=== PATIENT | female | born 1995 | race Caucasian/White ===

== ENCOUNTER 2023-06-28 15:43 | Emergency (ER) | payer MEDICAID ==
[~2023-06-28] VITALS: Ht 165.1 cm; Wt 55.0 kg
[2023-06-28 16:00] VITALS: BP 143/81; O2SAT 100
[2023-06-28] MEDS ORDERED: IBUPROFEN 600MG TABLET PO ONE (17:00)
[2023-06-28 17:22] LABS: CLARITY URINE CLEAR (CLEAR); COLOR URINE YELLOW (YELLOW); GLUCOSE URINE NEGATIVE (NEGATIVE); KETONES URINE NEGATIVE (NEGATIVE); LEUKOCYTE ESTERASE URINE NEGATIVE (NEGATIVE); NITRITE URINE NEGATIVE (NEGATIVE); OCCULT BLOOD URINE NEGATIVE (NEGATIVE); PH URINE 6.5 (4.5-8.0); PROTEIN URINE NEGATIVE (NEGATIVE); SPECIFIC GRAVITY URINE 1.013 (1.005-1.030); UROBILINOGEN URINE 0.2 E.U./dL (0.2-1.0)
[2023-06-28 20:59] VITALS: PULSE 93; RESP 16; TEMP 98.6
[2023-07-02 06:07] LABS: CHLAMYDIA TRACHOMATIS NAA Negative (Negative); NEISSERIA GONORRHOEAE NAA Negative (Negative)
== END 2023-06-28 21:00 | disposition home or self-care (01) ==
LOC: ER 15:43
DX: O26.891 Other specified pregnancy related conditions, first trimester (principal); Z3A.01 Less than 8 weeks gestation of pregnancy
CPT/HCPCS: 76801; 81003; 81025; 87491; 87591; 99284

== ENCOUNTER 2023-08-04 16:01 | Emergency (ER) | payer MEDICAID ==
[~2023-08-04] VITALS: Ht 165.1 cm; Wt 65.0 kg
[2023-08-04 16:03] VITALS: O2SAT 100
[2023-08-04] MEDS ORDERED: DIPHENHYDRAMINE 50MG/ML VIAL IV ONE (17:00)
[2023-08-04] MEDS ORDERED: METOCLOPRAMIDE HCL 10MG/2ML VIAL IV ONE (17:00)
[2023-08-04] MEDS ORDERED: SODIUM CHLORIDE 0.9% 1,000 ML IV ONE (17:00)
[2023-08-04 17:01] LABS: CLARITY URINE TURBID (CLEAR); COLOR URINE YELLOW (YELLOW); GLUCOSE URINE NEGATIVE (NEGATIVE); PH URINE 7.5 (4.5-8.0); PROTEIN URINE NEGATIVE (NEGATIVE); SPECIFIC GRAVITY URINE 1.018 (1.005-1.030)
[2023-08-04 17:02] LABS: KETONES URINE 1+ (NEGATIVE); LEUKOCYTE ESTERASE URINE NEGATIVE (NEGATIVE); NITRITE URINE NEGATIVE (NEGATIVE); OCCULT BLOOD URINE NEGATIVE (NEGATIVE)
[2023-08-04 17:27] LABS: AMORPHOUS SEDIMENT URINE 2+ /lpf; BACTERIA URINE TRACE; RBC URINE 0-2 /hpf (0-2); SQUAMOUS EPITHELIAL CELL URINE FEW /lpf (RARE/1+); WBC URINE 0-2 /hpf (0-2)
[2023-08-04 17:53] LABS: BASOPHILS % 0.1 % (0.0-2.0); EOSINOPHILS % 1.1 % (0.0-5.0); HEMATOCRIT. 40.8 % (36.0-48.0); HEMOGLOBIN. 13.4 g/dL (12.0-16.0); LYMPHOCYTES % 24.7 % (20.0-50.0); MEAN CORPUSCULAR HEMOGLOBIN 30.9 pg (28.0-32.0); MEAN CORPUSCULAR HGB CONC 32.8 g/dL (31.0-37.0); MEAN CORPUSCULAR VOLUME 94.1 fL (81.0-99.0); MEAN PLATELET VOLUME 8.3 fl (7.4-10.4); MONOCYTES % 8.3 % (2.0-8.0); NEUTROPHILS % 65.8 % (40.0-76.0); PLATELET 234 x1000/uL (130-400); RED BLOOD CELL COUNT 4.33 mill/uL (4.2-5.4); RED CELL DISTRIBUTION WIDTH 12.8 % (11.6-14.6); WHITE BLOOD COUNT 10.4 x1000/uL (4.5-11.0)
[2023-08-04 19:02] LABS: ALANINE AMINOTRANSFERASE 11 IU/L (10-49); ASPARTATE AMINOTRANSFERASE 16 IU/L (<34); BILIRUBIN TOTAL 0.7 mg/dL (0.1-1.0); CALCIUM 9.1 mg/dL (8.7-10.4); CARBON DIOXIDE 25 mEq/L (21-32); CHLORIDE 105 mEq/L (98-107); CREATININE 0.5 mg/dL (0.6-1.0); GLUCOSE 81 mg/dL (70-105); POTASSIUM 3.7 mEq/L (3.5-5.1); PROTEIN TOTAL 6.6 g/dL (6.0-8.3); SODIUM 137 mEq/L (136-145); UREA NITROGEN BLOOD 7 mg/dL (9-23)
[2023-08-04] MEDS ORDERED: ONDA4TAB11 PO (20:07)
[2023-08-04] MEDS ORDERED: CEPH500C2 MT (20:07)
[2023-08-04 20:15] VITALS: BP 120/78; PULSE 79; RESP 20; TEMP 98.1
== END 2023-08-04 20:36 | disposition home or self-care (01) ==
LOC: ER 16:01
DX: O26.891 Other specified pregnancy related conditions, first trimester (principal); O21.0 Mild hyperemesis gravidarum; R51.9 Headache, unspecified; Z3A.10 10 weeks gestation of pregnancy
CPT/HCPCS: 99285; 96374; 76801; 96361; 96375; 80053; 81003; 81025; 84702; 85025; 86850; 86900; 86901; 36415; 76817; J1200; J2765; J7030

== ENCOUNTER 2023-08-31 08:38 | Emergency (ER) | payer MEDICAID ==
[~2023-08-31] VITALS: Ht 162.6 cm; Wt 65.0 kg
[~2023-08-31 08:38] MED LIST: CEPH500C2 MT; ONDA4TAB11 PO
[2023-08-31 09:15] VITALS: BP 114/70; PULSE 102; RESP 16; TEMP 98.2; O2SAT 100
[2023-08-31] MEDS ORDERED: AMOX-494 MT (11:24)
== END 2023-08-31 12:06 | disposition home or self-care (01) ==
LOC: ER 08:40
DX: J02.9 Acute pharyngitis, unspecified (principal)
CPT/HCPCS: 99283